=== PATIENT | female | born 1970 | race Caucasian/White ===

== ENCOUNTER 2016-05-20 23:33 | Emergency (ER) | payer OTHER ==
--- NOTE | 2016-05-21 00:32 | ED CLINICAL REPORT ---
Clinical Report - Physicians/Mid Levels [facility] [address] [place] [address] 05/20/2016 23:33 Patient: JANE MENDOZA Time Seen: 23:38; initial patient contact. Arrived- By private vehicle. Historian- patient. HISTORY OF PRESENT ILLNESS Chief Complaint: DYSPNEA and HISTORY OF ASTHMA. This started today and is still present and worsening. (persistent). The dyspnea is described as moderate. The dyspnea is worsened by walking and exertion. No improvement of dyspnea with rest. No cough, sputum production, fever, chills or dyspnea on exertion. No chest pain, calf pain, foot swelling, orthopnea or anxiety. No dizziness or palpitations. She has had chest discomfort and wheezing. Similar symptoms previously: Many times. Recent medical care: Not recently seen/assessed. REVIEW OF SYSTEMS No nasal discharge, sinus drainage, nausea or vomiting. All systems otherwise negative, except as recorded above. PAST HISTORY Asthma. Surgeries: No history of previous surgery. Additional Surgeries: no known surgeries. Medications: Albuterol Sulfate HFA Inhalation. Allergies: No Known Drug Allergy. SOCIAL HISTORY Former smoker. ADDITIONAL NOTES The nursing notes have been reviewed with agreement regarding the chief complaint, PMH and patient medications and allergies. PHYSICAL EXAM Vital Signs: 05/20/2016 23:34 BP: 153/79. HR: 98. RR: 20. O2 saturation: 96%. Temp: 97.9 F. Reyes-Rivas pain scale: 4/10. Have been reviewed. Hypertensive. Heart rate normal. Respiratory rate normal. Temperature normal. Oxygen saturation normal. Appearance: Alert. Patient in mild distress. Eyes: Eyes normal inspection. ENT: Pharynx normal. Neck: No jugular venous distention. CVS: Normal heart rate and rhythm. Heart sounds normal. Respiratory: Mild respiratory distress with accessory muscle use and retractions. Mildly prolonged expirations. Mildly decreased air movement diffusely over both lungs. Expiratory moderate bilateral wheezes diffusely. No rales or rhonchi. Skin: Normal skin color. Extremities: No calf tenderness. No lower extremity edema. Neuro: Oriented X 3. PROGRESS AND PROCEDURES Course of Care: Albuterol nebulizer treatment (2 unit doses) (2.5 mg in 3 mL NS) given. Prednisone 40 PO given. DuoNeb nebulizer treatment (1 unit dose) given. 05/21/2016 00:31 BP: 124/65. HR: 90. RR: 17. O2 saturation: 95%. Vital Signs: have been reviewed as normal. The patient's symptoms are now gone. Physical exam findings are improved. Disposition: Discharged home in good and improved condition. Condition: good. CLINICAL IMPRESSION Moderate persistent asthma with an acute exacerbation. No status asthmaticus. INSTRUCTIONS Avoid tobacco smoke. Your Current Medications: CONTINUE TAKING THE FOLLOWING MEDICATIONS: Albuterol Sulfate HFA Inhalation. Prescription Medications: Albuterol HFA oral inhaler: inhale 2 puffs every 4 hours as needed for wheezing, difficulty breathing or shortness of breath. Dispense one (1) unit. One refill. Prednisone 10 mg tablets: take 4 tablets every day for 5 days ; then take 2 tablets every day for 3 days ; then take 1 tablet every day for 2 days. Dispense sufficient quantity. No refills. (Start on 05/21/16) Follow-up: Screening today revealed the patient's blood pressure to be in the pre-hypertensive range. The patient should follow up with a primary care provider for blood pressure management. Follow-up with: [facility], , , [address], , [place], [id number] Follow up in about two days if not better. Call for an appointment. (Electronically signed by Elliott Marie Dr. 05/21/2016 1:23)
--- NOTE | 2016-05-21 00:32 | ED ORDER SUMMARY ---
..... Patient: JANE MENDOZA OrderSheet [facility] VisitID: [id number] [address] [place] [address] 45y, F Registration Date/Time: 05/20/2016 ORDER SHEET Weight: 90.7 kg (stated) Allergies: No Known Drug Allergy GENERAL ORDERS: MEDICATION ORDERS: DuoNeb Neb Tx 1 unit dose (NOW) (23:38 05/20/2016 Arianna Singh) (Ack 23:39 RCollier R.N.) (23:42 RCollier R.N.) Prednisone PO 40 mg (NOW) (23:39 05/20/2016 Arianna Singh) (Ack 23:39 RCollier R.N.) (23:44 RCollier R.N.) Albuterol Neb Tx 2 unit doses (NOW) (23:41 05/20/2016 Arianna Singh) (Ack 23:42 RCollier R.N.) (23:42 RCollier R.N.) IV FLUIDS: ORDER SHEET NOTES: [Electronically signed by Negra Walker R.N. (00:42 05/21/2016)] [Electronically signed by Elliott Marie Dr. (01:23 05/21/2016)] [Electronically locked/signed by Negra Walker R.N. (00:42 05/21/2016)]
--- NOTE | 2016-05-21 00:32 | ED CLINICAL REPORT ---
Clinical Report - Physicians/Mid Levels [facility] [address] [place] [address] 05/20/2016 23:33 Patient: JANE MENDOZA Time Seen: 23:38; initial patient contact. Arrived- By private vehicle. Historian- patient. HISTORY OF PRESENT ILLNESS Chief Complaint: DYSPNEA and HISTORY OF ASTHMA. This started today and is still present and worsening. (persistent). The dyspnea is described as moderate. The dyspnea is worsened by walking and exertion. No improvement of dyspnea with rest. No cough, sputum production, fever, chills or dyspnea on exertion. No chest pain, calf pain, foot swelling, orthopnea or anxiety. No dizziness or palpitations. She has had chest discomfort and wheezing. Similar symptoms previously: Many times. Recent medical care: Not recently seen/assessed. REVIEW OF SYSTEMS No nasal discharge, sinus drainage, nausea or vomiting. All systems otherwise negative, except as recorded above. PAST HISTORY Asthma. Surgeries: No history of previous surgery. Additional Surgeries: no known surgeries. Medications: Albuterol Sulfate HFA Inhalation. Allergies: No Known Drug Allergy. SOCIAL HISTORY Former smoker. ADDITIONAL NOTES The nursing notes have been reviewed with agreement regarding the chief complaint, PMH and patient medications and allergies. PHYSICAL EXAM Vital Signs: 05/20/2016 23:34 BP: 153/79. HR: 98. RR: 20. O2 saturation: 96%. Temp: 97.9 F. Reyes-Rivas pain scale: 4/10. Have been reviewed. Hypertensive. Heart rate normal. Respiratory rate normal. Temperature normal. Oxygen saturation normal. Appearance: Alert. Patient in mild distress. Eyes: Eyes normal inspection. ENT: Pharynx normal. Neck: No jugular venous distention. CVS: Normal heart rate and rhythm. Heart sounds normal. Respiratory: Mild respiratory distress with accessory muscle use and retractions. Mildly prolonged expirations. Mildly decreased air movement diffusely over both lungs. Expiratory moderate bilateral wheezes diffusely. No rales or rhonchi. Skin: Normal skin color. Extremities: No calf tenderness. No lower extremity edema. Neuro: Oriented X 3. PROGRESS AND PROCEDURES Course of Care: Albuterol nebulizer treatment (2 unit doses) (2.5 mg in 3 mL NS) given. Prednisone 40 PO given. DuoNeb nebulizer treatment (1 unit dose) given. 05/21/2016 00:31 BP: 124/65. HR: 90. RR: 17. O2 saturation: 95%. Vital Signs: have been reviewed as normal. The patient's symptoms are now gone. Physical exam findings are improved. Disposition: Discharged home in good and improved condition. Condition: good. CLINICAL IMPRESSION Moderate persistent asthma with an acute exacerbation. No status asthmaticus. INSTRUCTIONS Avoid tobacco smoke. Your Current Medications: CONTINUE TAKING THE FOLLOWING MEDICATIONS: Albuterol Sulfate HFA Inhalation. Prescription Medications: Albuterol HFA oral inhaler: inhale 2 puffs every 4 hours as needed for wheezing, difficulty breathing or shortness of breath. Dispense one (1) unit. One refill. Prednisone 10 mg tablets: take 4 tablets every day for 5 days ; then take 2 tablets every day for 3 days ; then take 1 tablet every day for 2 days. Dispense sufficient quantity. No refills. (Start on 05/21/16) Follow-up: Screening today revealed the patient's blood pressure to be in the pre-hypertensive range. The patient should follow up with a primary care provider for blood pressure management. Follow-up with: [facility], , , [address], , [place], [id number] Follow up in about two days if not better. Call for an appointment. (Electronically signed by Elliott Marie Dr. 05/21/2016 1:23)
--- NOTE | 2016-05-21 00:32 | ED NURSING NOTES ---
Clinical Report - Nurses [facility] [address] [place] [address] 05/20/2016 23:33 Patient: JANE MENDOZA TRIAGE Triage time 23:34. Acuity: LEVEL 3. Chief Complaint: "ASTHMA ATTACK". Alert. --23:36 Negra Walker R.N. 23:34 05/20/16. BP: 153/79. HR: 98. RR: 20. O2 saturation: 96% on room air. Temp: 97.9 F (axillary). Reyes-Rivas pain scale: 4/10. --23:36 Negra Walker R.N. Weight: 90.7 kg stated. Height/Length: 64 inches Per Patient. BMI: 34.3. --23:35 Negra Walker R.N. Medications Albuterol Sulfate HFA Inhalation. --23:35 Negra Walker R.N. Allergies No Known Drug Allergy. --23:35 Negra Walker R.N. History Arrived by private vehicle. Historian: patient. Accompanied by family. ( PT RAN OUT OF INHALER). This started today. 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 SOCIAL HX: Never smoker. No alcohol use or drug use. NUTRITIONAL RISK ASSESSMENT: The nutritional risk assessment revealed no deficiencies. FUNCTIONAL ASSESSMENT: Functional assessment: no impairments noted. --23:36 Negra Walker R.N. PROBLEMS: Asthma. --23:36 Negra Walker R.N. ADDITIONAL SURGERIES: no known surgeries. Interventions ID band on patient. To treatment room. --23:36 Nerga Walker R.N. PHYSICAL ASSESSMENT To room via wheelchair. HEENT: Mucous membranes are pink. RESPIRATORY: Moderate respiratory distress. The patient can speak one word at a time. Wheezing present; wheezes audible without auscultation. CVS: Capillary refill less than 2 seconds. SKIN: Skin is warm and dry. --23:37 Negra Walker R.N. NURSING PROGRESS NOTES Head of bed elevated. Two patient identifiers checked. Call light placed in reach. Side rails up x 1. Bed placed in lowest position. Brakes of bed on. --23:37 Negra Walker R.N. 23:40 05/20/2016 Duoneb (Ipratropium-Albuterol) Neb TX Nebulizer 1 unit dose given. Given by the respiratory therapist. Allergies verified and confirmed 5 rights. --23:42 Negra Walker R.N. 23:40 05/20/2016 Albuterol Neb TX Nebulizer 2 unit dose given. Given by the respiratory therapist. Allergies verified and confirmed 5 rights. --23:42 Negra Walker R.N. 23:43 05/20/2016 Prednisone PO Tablets 40 mg given. Allergies verified and confirmed 5 rights. --23:44 Negra Walker R.N. 00:31 05/21/16. BP: 124/65. HR: 90. RR: 17. O2 saturation: 95% on room air. --00:32 Negra Walker R.N. Reassessment after medication administered. Overall patient status- she states feels better. RESPIRATORY: Mild respiratory distress present (pt states she feels better but still unable to take deep breath without cough.). --00:33 Negra Walker R.N. DISPOSITION / DISCHARGE 00:31 05/21/16. BP: 124/65. HR: 90. RR: 17. O2 saturation: 95% on room air. --00:41 Negra Walker R.N. Condition at departure: improved and stable. No learning barriers present. Discharge instructions provided and reviewed with the patient. Reviewed medication(s) side effects, precautions, dosing and course information. Prescription(s) given to the patient. Patient verbalized understanding. Written instructions provided in [place]. The patient was discharged home and accompanied by spouse. She left the Emergency Department ambulatory and via private vehicle. Spouse driving. --00:42 Negra Walker R.N. Locked/Released at 05/21/2016 0:42 by Negra Walker R.N.
--- NOTE | 2016-05-21 00:32 | ED ORDER SUMMARY ---
..... Patient: JANE MENDOZA OrderSheet [facility] VisitID: [id number] [address] [place] [address] 45y, F Registration Date/Time: 05/20/2016 ORDER SHEET Weight: 90.7 kg (stated) Allergies: No Known Drug Allergy GENERAL ORDERS: MEDICATION ORDERS: DuoNeb Neb Tx 1 unit dose (NOW) (23:38 05/20/2016 Arianna Singh) (Ack 23:39 RCollier R.N.) (23:42 RCollier R.N.) Prednisone PO 40 mg (NOW) (23:39 05/20/2016 Arianna Singh) (Ack 23:39 RCollier R.N.) (23:44 RCollier R.N.) Albuterol Neb Tx 2 unit doses (NOW) (23:41 05/20/2016 Arianna Singh) (Ack 23:42 RCollier R.N.) (23:42 RCollier R.N.) IV FLUIDS: ORDER SHEET NOTES: [Electronically signed by Negra Walker R.N. (00:42 05/21/2016)] [Electronically signed by Elliott Marie Dr. (01:23 05/21/2016)] [Electronically locked/signed by Negra Walker R.N. (00:42 05/21/2016)]
--- NOTE | 2016-05-21 00:32 | ED NURSING NOTES ---
Clinical Report - Nurses [facility] [address] [place] [address] 05/20/2016 23:33 Patient: JANE MENDOZA TRIAGE Triage time 23:34. Acuity: LEVEL 3. Chief Complaint: "ASTHMA ATTACK". Alert. --23:36 Negra Walker R.N. 23:34 05/20/16. BP: 153/79. HR: 98. RR: 20. O2 saturation: 96% on room air. Temp: 97.9 F (axillary). Reyes-Rivas pain scale: 4/10. --23:36 Negra Walker R.N. Weight: 90.7 kg stated. Height/Length: 64 inches Per Patient. BMI: 34.3. --23:35 Negra Walker R.N. Medications Albuterol Sulfate HFA Inhalation. --23:35 Negra Walker R.N. Allergies No Known Drug Allergy. --23:35 Negra aWlker R.N. History Arrived by private vehicle. Historian: patient. Accompanied by family. ( PT RAN OUT OF INHALER). This started today. Onset. (about 3 hours [place]). Treatment [place]: None. SOCIAL HX: Never smoker. No alcohol use or drug use. NUTRITIONAL RISK ASSESSMENT: The nutritional risk assessment revealed no deficiencies. FUNCTIONAL ASSESSMENT: Functional assessment: no impairments noted. --23:36 Negra Walker R.N. PROBLEMS: Asthma. --23:36 Negra Walker R.N. ADDITIONAL SURGERIES: no known surgeries. Interventions ID band on patient. To treatment room. --23:36 Negra Walker R.N. PHYSICAL ASSESSMENT To room via wheelchair. HEENT: Mucous membranes are pink. RESPIRATORY: Moderate respiratory distress. The patient can speak one word at a time. Wheezing present; wheezes audible without auscultation. CVS: Capillary refill less than 2 seconds. SKIN: Skin is warm and dry. --23:37 Negra Walker R.N. NURSING PROGRESS NOTES Head of bed elevated. Two patient identifiers checked. Call light placed in reach. Side rails up x 1. Bed placed in lowest position. Brakes of bed on. --23:37 Negra Walker R.N. 23:40 05/20/2016 Duoneb (Ipratropium-Albuterol) Neb TX Nebulizer 1 unit dose given. Given by the respiratory therapist. Allergies verified and confirmed 5 rights. --23:42 Negra Walker R.N. 23:40 05/20/2016 Albuterol Neb TX Nebulizer 2 unit dose given. Given by the respiratory therapist. Allergies verified and confirmed 5 rights. --23:42 Negra Walker R.N. 23:43 05/20/2016 Prednisone PO Tablets 40 mg given. Allergies verified and confirmed 5 rights. --23:44 Negra Walker R.N. 00:31 05/21/16. BP: 124/65. HR: 90. RR: 17. O2 saturation: 95% on room air. --00:32 Negra Walker R.N. Reassessment after medication administered. Overall patient status- she states feels better. RESPIRATORY: Mild respiratory distress present (pt states she feels better but still unable to take deep breath without cough.). --00:33 Negra Walker R.N. DISPOSITION / DISCHARGE 00:31 05/21/16. BP: 124/65. HR: 90. RR: 17. O2 saturation: 95% on room air. --00:41 Negra Walker R.N. Condition at departure: improved and stable. No learning barriers present. Discharge instructions provided and reviewed with the patient. Reviewed medication(s) side effects, precautions, dosing and course information. Prescription(s) given to the patient. Patient verbalized understanding. Written instructions provided in Macedonian. The patient was discharged home and accompanied by spouse. She left the Emergency Department ambulatory and via private vehicle. Spouse driving. --00:42 Negra Walker R.N. Locked/Released at 05/21/2016 0:42 by Negra Walker R.N.
--- NOTE | 2016-05-21 01:23 | ED MED RECONCILIATION SUMMARY ---
Patient: JANE MENDOZA Medication Reconciliation Report [facility] VisitID: [id number] [address] [place] [address] 45y, F Registration Date/Time: 05/20/2016 Weight: 90.7 kg Height/Length: 64 in. BMI: 34.3 ALLERGIES: No Known Drug Allergy The patient's Home Medications are listed below: CONTINUE TAKING THE FOLLOWING MEDICATIONS: Albuterol Sulfate HFA Inhalation The source(s) of the original Home Medication information: Not obtained. The following Medications were given to the patient in the Emergency Department: Duoneb [Neb Tx] Neb TX 1 unit dose, administered: 05/20/2016 11:40:00 PM Albuterol [Neb Tx] Neb TX 2 unit dose, administered: 05/20/2016 11:40:00 PM Prednisone [PO] PO 40 mg, administered: 05/20/2016 11:43:00 PM The following Medications were prescribed to the patient: Albuterol HFA oral inhaler: inhale 2 puffs every 4 hours as needed for wheezing, difficulty breathing or shortness of breath. Dispense one (1) unit. One refill. -- Elliott Marie Dr. Prednisone 10 mg tablets: take 4 tablets every day for 5 days ; then take 2 tablets every day for 3 days ; then take 1 tablet every day for 2 days. Dispense sufficient quantity. No refills.(Start on 05/21/16) -- Elliott Marie Dr.
--- NOTE | 2016-05-21 01:23 | ED MED RECONCILIATION SUMMARY ---
Patient: JANE MENDOZA Medication Reconciliation Report [facility] VisitID: [id number] [address] [place] [address] 45y, F Registration Date/Time: 05/20/2016 Weight: 90.7 kg Height/Length: 64 in. BMI: 34.3 ALLERGIES: No Known Drug Allergy The patient's Home Medications are listed below: CONTINUE TAKING THE FOLLOWING MEDICATIONS: Albuterol Sulfate HFA Inhalation The source(s) of the original Home Medication information: Not obtained. The following Medications were given to the patient in the Emergency Department: Duoneb [Neb Tx] Neb TX 1 unit dose, administered: 05/20/2016 11:40:00 PM Albuterol [Neb Tx] Neb TX 2 unit dose, administered: 05/20/2016 11:40:00 PM Prednisone [PO] PO 40 mg, administered: 05/20/2016 11:43:00 PM The following Medications were prescribed to the patient: Albuterol HFA oral inhaler: inhale 2 puffs every 4 hours as needed for wheezing, difficulty breathing or shortness of breath. Dispense one (1) unit. One refill. -- Elliott Marie Dr. Prednisone 10 mg tablets: take 4 tablets every day for 5 days ; then take 2 tablets every day for 3 days ; then take 1 tablet every day for 2 days. Dispense sufficient quantity. No refills.(Start on 05/21/16) -- Elliott Marie Dr.
--- NOTE | 2016-05-21 01:23 | ED MAR SUMMARY ---
..... Medication Administration Record [facility] [address] [place] [address] Patient: JANE MENDOZA Visit ID: [id number] 45y, F Weight: 90.7 kg Height/Length: 64 in BMI: 34.3 ALLERGIES: No Known Drug Allergy Given 23:05/20/2016 Negra Walker R.N. Medication Administered: DUONEB [NEB TX] (IPRATROPIUM-ALBUTEROL), Dose: 1 unit dose Nebulizer Neb TX. Medication Ordered: DuoNeb Neb Tx 1 unit dose (NOW). Given :05/20/2016 Negra Walkre R.NAilyn Medication Administered: ALBUTEROL [NEB TX], Dose: 2 unit dose Nebulizer Neb TX. Medication Ordered: Albuterol Neb Tx 2 unit doses (NOW). Given :05/20/2016 Negra Walker R.NAilyn Medication Administered: PREDNISONE [PO], Dose: 40 mg Tablets PO. Medication Ordered: Prednisone PO 40 mg (NOW).
--- NOTE | 2016-05-21 01:23 | ED DISCHARGE INSTRUCTIONS ---
Patient: JANE MENDOZA General Instructions [facility] VisitID: [id number] [address] [place] [address] 45y, F Registration Date/Time: 05/20/2016 Moderate persistent asthma with an acute exacerbation. No status asthmaticus. INSTRUCTIONS Avoid tobacco smoke. Your Current Medications: CONTINUE TAKING THE FOLLOWING MEDICATIONS: Albuterol Sulfate HFA Inhalation. Prescription Medications: Albuterol HFA oral inhaler: inhale 2 puffs every 4 hours as needed for wheezing, difficulty breathing or shortness of breath. Dispense one (1) unit. One refill. Prednisone 10 mg tablets: take 4 tablets every day for 5 days ; then take 2 tablets every day for 3 days ; then take 1 tablet every day for 2 days. Dispense sufficient quantity. No refills. (Start on 05/21/16) Follow-up: Screening today revealed the patient's blood pressure to be in the pre-hypertensive range. The patient should follow up with a primary care provider for blood pressure management. Follow-up with: [facility], , , [address], , [place], [id number] Follow up in about two days if not better. Call for an appointment. ADDITIONAL INFORMATION Asthma [Adult] Asthma is a disease where the small air passages within the lung go into spasm and restrict the flow of air. Inflammation and swelling of the airways cause further restriction. During an acute asthma attack, these factors cause difficulty breathing, wheezing, cough and chest tightness. An asthma attack can be triggered by many things. Common triggers include the common cold, bronchitis, pneumonia, irritants such as smoke or pullutants in the air, emotional upset and heavy exercise. Inmany adults with asthma, allergies todust, mold, pollen and animal dander can cause an asthma attack. Skipping doses of daily asthma medicine can also bring on an asthma attack. Asthma can be controlled with proper medicines and decreased exposure to known allergens. Home Care: Take prescribed medicine exactly at the times advised. If you have a hand-held inhaler or aerosol breathing medicine, do not use it more than once every four hours, unless told to do so. (If you need this medicine more than every four hours, you may need to return to the Emergency Room.) If prescribed an antibiotic or prednisone, take all of the medicine even if you are feeling better after a few days. Do not smoke. Avoid being exposed to the smoke of others. Some persons with asthma have worsening of their symptoms when they take aspirin and non-steroidal medicines like ibuprofen (Motrin, Advil) and naproxen (Aleve, Naprosyn). Talk to your doctor if you think this may apply to you. Acetaminophen (Tylenol)should be safe to use. Follow Up with your doctor, or as advised by our staff. Always bring all of your current medicines with you for your doctor to see. If you do not already have one, talk to your doctor about developing a personalized "Asthma Action Plan." [NOTE: A pneumococcal vaccine and yearly flu shot (every fall) are recommended. Ask your doctor about this.] Get Prompt Medical Attention if any of the following occur: Increased wheezing or shortness of breath Need to use your inhalers more often than usual without relief Fever of 100.4F (38C) or higher, or as directed by your healthcare provider Coughing up lots of dark-colored or bloody sputum (mucus) Chest pain with each breath You do not start to improve within 24 hours Call 911 If Any Of The Following Occur : Trouble walking or talking because of shortness of breath If you use a peak flow meter andyou are still in the red zone (less than 50 percent) 15 minutes after using inhaler medication Lips or fingernails turning lopez or blue Albuterol Sulfate Pressurized inhalation, suspension What is this medicine? ALBUTEROL (al BYOO ter ole) is a bronchodilator. It helps open up the airways in your lungs to make it easier to breathe. This medicine is used to treat and to prevent bronchospasm. How should I use this medicine? This medicine is for inhalation through the mouth. Follow the directions on your prescription label. Take your medicine at regular intervals. Do not use more often than directed. Make sure that you are using your inhaler correctly. Ask you doctor or health care provider if you have any questions. Talk to your manager sales support regarding the use of this medicine in children. Special care may be needed. What side effects may I notice from receiving this medicine? Side effects that you should report to your doctor or health home care scheduler as soon as possible: allergic reactions like skin rash, itching or hives, swelling of the face, lips, or tongue breathing problems chest pain feeling faint or lightheaded, falls high blood pressure irregular heartbeat fever muscle cramps or weakness pain, tingling, numbness in the hands or feet vomiting Side effects that usually do not require medical attention (report to your doctor or health home care scheduler if they continue or are bothersome): cough difficulty sleeping headache nervousness or trembling stomach upset stuffy or runny nose throat irritation unusual taste What may interact with this medicine? anti-infectives like chloroquine and pentamidine caffeine cisapride diuretics medicines for colds medicines for depression or for emotional or psychotic conditions medicines for weight loss including some herbal products methadone some antibiotics like clarithromycin, erythromycin, levofloxacin, and linezolid some heart medicines steroid hormones like dexamethasone, cortisone, hydrocortisone theophylline thyroid hormones What if I miss a dose? If you miss a dose, use it as soon as you can. If it is almost time for your next dose, use only that dose. Do not use double or extra doses. Where should I keep my medicine? Keep out of the reach of children. Store at room temperature between 15 and 30 degrees C (59 and 86 degrees F). The contents are under pressure and may burst when exposed to heat or flame. Do not freeze. This medicine does not work as well if it is too cold. Throw away any unused medicine after the expiration date. Inhalers need to be thrown away after the labeled number of puffs have been used or by the expiration date; whichever comes first. Ventolin HFA should be thrown away 12 months after removing from foil pouch. Check the instructions that come with your medicine. What should I tell my health care provider before I take this medicine? They need to know if you have any of the following conditions: diabetes heart disease or irregular heartbeat high blood pressure pheochromocytoma seizures thyroid disease an unusual or allergic reaction to albuterol, levalbuterol, sulfites, other medicines, foods, dyes, or preservatives or trying to get breast-feeding What should I watch for while using this medicine? Tell your doctor or health home care scheduler if your symptoms do not improve. Do not use extra albuterol. If your asthma or bronchitis gets worse while you are using this medicine, call your doctor right away. If your mouth gets dry try chewing sugarless gum or sucking hard candy. Drink water as directed. Prednisone Oral tablet What is this medicine? PREDNISONE (PRED ni sone) is a corticosteroid. It is commonly used to treat inflammation of the skin, joints, lungs, and other organs. Common conditions treated include asthma, allergies, and arthritis. It is also used for other conditions, such as blood disorders and diseases of the adrenal glands. How should I use this medicine? Take this medicine by mouth with a glass of water. Follow the directions on the prescription label. Take this medicine with food. If you are taking this medicine once a day, take it in the morning. Do not take more medicine than you are told to take. Do not suddenly stop taking your medicine because you may develop a severe reaction. Your doctor will tell you how much medicine to take. If your doctor wants you to stop the medicine, the dose may be slowly lowered over time to avoid any side effects. Talk to your manager sales support regarding the use of this medicine in children. Special care may be needed. What side effects may I notice from receiving this medicine? Side effects that you should report to your doctor or health home care scheduler as soon as possible: allergic reactions like skin rash, itching or hives, swelling of the face, lips, or tongue changes in emotions or moods changes in vision depressed mood eye pain fever or chills, cough, sore throat, pain or difficulty passing urine increased thirst swelling of ankles, feet Side effects that usually do not require medical attention (report to your doctor or health home care scheduler if they continue or are bothersome): confusion, excitement, restlessness headache nausea, vomiting skin problems, acne, thin and shiny skin trouble sleeping weight gain What may interact with this medicine? Do not take this medicine with any of the following medications: metyrapone mifepristone This medicine may also interact with the following medications: aminoglutethimide amphotericin B aspirin and aspirin-like medicines barbiturates certain medicines for diabetes, like glipizide or glyburide cholestyramine cholinesterase inhibitors cyclosporine digoxin diuretics ephedrine female hormones, like estrogens and control pills isoniazid ketoconazole NSAIDS, medicines for pain and inflammation, like ibuprofen or naproxen phenytoin rifampin toxoids vaccines warfarin What if I miss a dose? If you miss a dose, take it as soon as you can. If it is almost time for your next dose, talk to your doctor or health home care scheduler. You may need to miss a dose or take an extra dose. Do not take double or extra doses without advice. Where should I keep my medicine? Keep out of the reach of children. Store at room temperature between 15 and 30 degrees C (59 and 86 degrees F). Protect from light. Keep container tightly closed. Throw away any unused medicine after the expiration date. What should I tell my health care provider before I take this medicine? They need to know if you have any of these conditions: [place]'s syndrome diabetes glaucoma heart disease high blood pressure infection (especially a virus infection such as chickenpox, cold sores, or herpes) kidney disease liver disease mental illness myasthenia gravis osteoporosis seizures stomach or intestine problems thyroid disease an unusual or allergic reaction to lactose, prednisone, other medicines, foods, dyes, or preservatives or trying to get breast-feeding What should I watch for while using this medicine? Visit your doctor or health home care scheduler for regular checks on your progress. If you are taking this medicine over a prolonged period, carry an identification card with your name and address, the type and dose of your medicine, and your doctor's name and address. This medicine may increase your risk of getting an infection. Tell your doctor or health home care scheduler if you are around anyone with measles or chickenpox, or if you develop sores or blisters that do not heal properly. If you are going to have surgery, tell your doctor or health home care scheduler that you have taken this medicine within the last twelve months. Ask your doctor or health home care scheduler about your diet. You may need to lower the amount of salt you eat. This medicine may affect blood sugar levels. If you have diabetes, check with your doctor or health home care scheduler before you change your diet or the dose of your diabetic medicine. You have been given the following additional information: Asthma, Acute (Adult) Albuterol Sulfate Pressurized inhalation, suspension Prednisone Oral tablet (Electronically signed by Elliott Marie Dr. 05/21/2016 1:23)
--- NOTE | 2016-05-21 01:23 | ED DISCHARGE INSTRUCTIONS ---
Patient: JANE MENDOZA General Instructions [facility] VisitID: [id number] [address] [place] [address] 45y, F Registration Date/Time: 05/20/2016 Moderate persistent asthma with an acute exacerbation. No status asthmaticus. INSTRUCTIONS Avoid tobacco smoke. Your Current Medications: CONTINUE TAKING THE FOLLOWING MEDICATIONS: Albuterol Sulfate HFA Inhalation. Prescription Medications: Albuterol HFA oral inhaler: inhale 2 puffs every 4 hours as needed for wheezing, difficulty breathing or shortness of breath. Dispense one (1) unit. One refill. Prednisone 10 mg tablets: take 4 tablets every day for 5 days ; then take 2 tablets every day for 3 days ; then take 1 tablet every day for 2 days. Dispense sufficient quantity. No refills. (Start on 05/21/16) Follow-up: Screening today revealed the patient's blood pressure to be in the pre-hypertensive range. The patient should follow up with a primary care provider for blood pressure management. Follow-up with: [facility], , , [address], , [place], [id number] Follow up in about two days if not better. Call for an appointment. ADDITIONAL INFORMATION Asthma [Adult] Asthma is a disease where the small air passages within the lung go into spasm and restrict the flow of air. Inflammation and swelling of the airways cause further restriction. During an acute asthma attack, these factors cause difficulty breathing, wheezing, cough and chest tightness. An asthma attack can be triggered by many things. Common triggers include the common cold, bronchitis, pneumonia, irritants such as smoke or pullutants in the air, emotional upset and heavy exercise. Inmany adults with asthma, allergies todust, mold, pollen and animal dander can cause an asthma attack. Skipping doses of daily asthma medicine can also bring on an asthma attack. Asthma can be controlled with proper medicines and decreased exposure to known allergens. Home Care: Take prescribed medicine exactly at the times advised. If you have a hand-held inhaler or aerosol breathing medicine, do not use it more than once every four hours, unless told to do so. (If you need this medicine more than every four hours, you may need to return to the Emergency Room.) If prescribed an antibiotic or prednisone, take all of the medicine even if you are feeling better after a few days. Do not smoke. Avoid being exposed to the smoke of others. Some persons with asthma have worsening of their symptoms when they take aspirin and non-steroidal medicines like ibuprofen (Motrin, Advil) and naproxen (Aleve, Naprosyn). Talk to your doctor if you think this may apply to you. Acetaminophen (Tylenol)should be safe to use. Follow Up with your doctor, or as advised by our staff. Always bring all of your current medicines with you for your doctor to see. If you do not already have one, talk to your doctor about developing a personalized "Asthma Action Plan." [NOTE: A pneumococcal vaccine and yearly flu shot (every fall) are recommended. Ask your doctor about this.] Get Prompt Medical Attention if any of the following occur: Increased wheezing or shortness of breath Need to use your inhalers more often than usual without relief Fever of 100.4F (38C) or higher, or as directed by your healthcare provider Coughing up lots of dark-colored or bloody sputum (mucus) Chest pain with each breath You do not start to improve within 24 hours Call 911 If Any Of The Following Occur : Trouble walking or talking because of shortness of breath If you use a peak flow meter andyou are still in the red zone (less than 50 percent) 15 minutes after using inhaler medication Lips or fingernails turning lopez or blue Albuterol Sulfate Pressurized inhalation, suspension What is this medicine? ALBUTEROL (al BYOO ter ole) is a bronchodilator. It helps open up the airways in your lungs to make it easier to breathe. This medicine is used to treat and to prevent bronchospasm. How should I use this medicine? This medicine is for inhalation through the mouth. Follow the directions on your prescription label. Take your medicine at regular intervals. Do not use more often than directed. Make sure that you are using your inhaler correctly. Ask you doctor or health care provider if you have any questions. Talk to your manager books regarding the use of this medicine in children. Special care may be needed. What side effects may I notice from receiving this medicine? Side effects that you should report to your doctor or health hospice care transitions coordinator as soon as possible: allergic reactions like skin rash, itching or hives, swelling of the face, lips, or tongue breathing problems chest pain feeling faint or lightheaded, falls high blood pressure irregular heartbeat fever muscle cramps or weakness pain, tingling, numbness in the hands or feet vomiting Side effects that usually do not require medical attention (report to your doctor or health hospice care transitions coordinator if they continue or are bothersome): cough difficulty sleeping headache nervousness or trembling stomach upset stuffy or runny nose throat irritation unusual taste What may interact with this medicine? anti-infectives like chloroquine and pentamidine caffeine cisapride diuretics medicines for colds medicines for depression or for emotional or psychotic conditions medicines for weight loss including some herbal products methadone some antibiotics like clarithromycin, erythromycin, levofloxacin, and linezolid some heart medicines steroid hormones like dexamethasone, cortisone, hydrocortisone theophylline thyroid hormones What if I miss a dose? If you miss a dose, use it as soon as you can. If it is almost time for your next dose, use only that dose. Do not use double or extra doses. Where should I keep my medicine? Keep out of the reach of children. Store at room temperature between 15 and 30 degrees C (59 and 86 degrees F). The contents are under pressure and may burst when exposed to heat or flame. Do not freeze. This medicine does not work as well if it is too cold. Throw away any unused medicine after the expiration date. Inhalers need to be thrown away after the labeled number of puffs have been used or by the expiration date; whichever comes first. Ventolin HFA should be thrown away 12 months after removing from foil pouch. Check the instructions that come with your medicine. What should I tell my health care provider before I take this medicine? They need to know if you have any of the following conditions: diabetes heart disease or irregular heartbeat high blood pressure pheochromocytoma seizures thyroid disease an unusual or allergic reaction to albuterol, levalbuterol, sulfites, other medicines, foods, dyes, or preservatives or trying to get breast-feeding What should I watch for while using this medicine? Tell your doctor or health hospice care transitions coordinator if your symptoms do not improve. Do not use extra albuterol. If your asthma or bronchitis gets worse while you are using this medicine, call your doctor right away. If your mouth gets dry try chewing sugarless gum or sucking hard candy. Drink water as directed. Prednisone Oral tablet What is this medicine? PREDNISONE (PRED ni sone) is a corticosteroid. It is commonly used to treat inflammation of the skin, joints, lungs, and other organs. Common conditions treated include asthma, allergies, and arthritis. It is also used for other conditions, such as blood disorders and diseases of the adrenal glands. How should I use this medicine? Take this medicine by mouth with a glass of water. Follow the directions on the prescription label. Take this medicine with food. If you are taking this medicine once a day, take it in the morning. Do not take more medicine than you are told to take. Do not suddenly stop taking your medicine because you may develop a severe reaction. Your doctor will tell you how much medicine to take. If your doctor wants you to stop the medicine, the dose may be slowly lowered over time to avoid any side effects. Talk to your manager books regarding the use of this medicine in children. Special care may be needed. What side effects may I notice from receiving this medicine? Side effects that you should report to your doctor or health hospice care transitions coordinator as soon as possible: allergic reactions like skin rash, itching or hives, swelling of the face, lips, or tongue changes in emotions or moods changes in vision depressed mood eye pain fever or chills, cough, sore throat, pain or difficulty passing urine increased thirst swelling of ankles, feet Side effects that usually do not require medical attention (report to your doctor or health hospice care transitions coordinator if they continue or are bothersome): confusion, excitement, restlessness headache nausea, vomiting skin problems, acne, thin and shiny skin trouble sleeping weight gain What may interact with this medicine? Do not take this medicine with any of the following medications: metyrapone mifepristone This medicine may also interact with the following medications: aminoglutethimide amphotericin B aspirin and aspirin-like medicines barbiturates certain medicines for diabetes, like glipizide or glyburide cholestyramine cholinesterase inhibitors cyclosporine digoxin diuretics ephedrine female hormones, like estrogens and control pills isoniazid ketoconazole NSAIDS, medicines for pain and inflammation, like ibuprofen or naproxen phenytoin rifampin toxoids vaccines warfarin What if I miss a dose? If you miss a dose, take it as soon as you can. If it is almost time for your next dose, talk to your doctor or health hospice care transitions coordinator. You may need to miss a dose or take an extra dose. Do not take double or extra doses without advice. Where should I keep my medicine? Keep out of the reach of children. Store at room temperature between 15 and 30 degrees C (59 and 86 degrees F). Protect from light. Keep container tightly closed. Throw away any unused medicine after the expiration date. What should I tell my health care provider before I take this medicine? They need to know if you have any of these conditions: [place]'s syndrome diabetes glaucoma heart disease high blood pressure infection (especially a virus infection such as chickenpox, cold sores, or herpes) kidney disease liver disease mental illness myasthenia gravis osteoporosis seizures stomach or intestine problems thyroid disease an unusual or allergic reaction to lactose, prednisone, other medicines, foods, dyes, or preservatives or trying to get breast-feeding What should I watch for while using this medicine? Visit your doctor or health hospice care transitions coordinator for regular checks on your progress. If you are taking this medicine over a prolonged period, carry an identification card with your name and address, the type and dose of your medicine, and your doctor's name and address. This medicine may increase your risk of getting an infection. Tell your doctor or health hospice care transitions coordinator if you are around anyone with measles or chickenpox, or if you develop sores or blisters that do not heal properly. If you are going to have surgery, tell your doctor or health hospice care transitions coordinator that you have taken this medicine within the last twelve months. Ask your doctor or health hospice care transitions coordinator about your diet. You may need to lower the amount of salt you eat. This medicine may affect blood sugar levels. If you have diabetes, check with your doctor or health hospice care transitions coordinator before you change your diet or the dose of your diabetic medicine. You have been given the following additional information: Asthma, Acute (Adult) Albuterol Sulfate Pressurized inhalation, suspension Prednisone Oral tablet (Electronically signed by Elliott Marie Dr. 05/21/2016 1:23)
--- NOTE | 2016-05-21 01:23 | ED MAR SUMMARY ---
..... Medication Administration Record [facility] [address] [place] [address] Patient: JANE MENDOZA Visit ID: [id number] 45y, F Weight: 90.7 kg Height/Length: 64 in BMI: 34.3 ALLERGIES: No Known Drug Allergy Given 23:05/20/2016 Negra Walker R.N. Medication Administered: DUONEB [NEB TX] (IPRATROPIUM-ALBUTEROL), Dose: 1 unit dose Nebulizer Neb TX. Medication Ordered: DuoNeb Neb Tx 1 unit dose (NOW). Given :05/20/2016 Negra Walker R.NAilyn Medication Administered: ALBUTEROL [NEB TX], Dose: 2 unit dose Nebulizer Neb TX. Medication Ordered: Albuterol Neb Tx 2 unit doses (NOW). Given :05/20/2016 Negra Walker R.NAilyn Medication Administered: PREDNISONE [PO], Dose: 40 mg Tablets PO. Medication Ordered: Prednisone PO 40 mg (NOW).
== END 2016-05-21 00:40 | disposition home or self-care (01) ==
LOC: ED SRH 23:33
DX: J45.41 Moderate persistent asthma with (acute) exacerbation (principal); Z79.51 Long term (current) use of inhaled steroids; Z87.891 Personal history of nicotine dependence